=== PATIENT | female | born 1980 | race Caucasian/White ===

== ENCOUNTER 2020-02-05 07:34 | Emergency (ER) | payer OTHER ==
[~2020-02-05] VITALS: Ht 167.6 cm; Wt 75.0 kg
[2020-02-05 07:41] VITALS: Ht 167.6 cm; Wt 75.0 kg
[2020-02-05] MEDS ORDERED: XANAX0.5 MG PO (07:43)
[2020-02-05 08:06] LABS: BASOPHILS 0.2 % (0-2); CALC OSMOLALITY 275 mosm/kg (275-300); CALCIUM 8.4 mg/dL (8.5-10.1); CARBON DIOXIDE 18.3 mmol/L (21.0-32.0); CHLORIDE - SERUM 103 mmol/L (98-107); EOSINOPHILS 0.1 % (0-7); GLUCOSE 124 mg/dL (74-106); HEMOGLOBIN 13.4 g/dL (12-16); IMMATURE GRANULOCYTES 0.3 % (0-5); LYMPHOCYTES 11.3 % (15-50); MCH 31.2 pg (26.0-34.0); MCHC 33.5 g/dL (31.0-37.0); MCV 93.2 fL (80.0-100.0); MEAN PLATELET VOLUME 9.8 fL (7.4-10.4); MONOCYTES 5.4 % (2-11); NEUTROPHILS 82.7 % (40-80); PLATELET COUNT 378 10x3/uL (130-400); POTASSIUM - SERUM 3.3 mmol/L (3.5-5.1); RBC 4.29 10x6/uL (4.00-5.40); RDW 14.3 % (11.5-14.5); SODIUM 138 mmol/L (136-145); UREA NITROGEN 9 mg/dL (7-18); WBC 17.1 10x3/uL (4.8-10.8); eGFR NON AFRICAN AMERICAN 66 mL/min (90-120)
[2020-02-05 08:15] LABS: ALBUMIN 3.9 g/dL (3.4-5.0); ALKALINE PHOSPHATASE 57 U/L (30-120); ALT (SGPT) 23 U/L (10-68); AMYLASE - SERUM 76 U/L (25-115); BILIRUBIN - TOTAL 0.32 mg/dL (0.2-1.3); LIPASE 43 U/L (73-393); PROTEIN - SERUM 7.1 g/dL (6.4-8.2); TROPONIN-I < 0.017 ng/mL (0.000-0.060)
[2020-02-05 08:40] LABS: BILIRUBIN NEGATIVE (NEGATIVE); GLUCOSE NEGATIVE (NEGATIVE); HCG URINE NEGATIVE (NEGATIVE); KETONE MODERATE mg/dL (NEGATIVE); NITRITE NEGATIVE (NEGATIVE); UROBILINOGEN NORMAL (NORMAL)
[2020-02-05] MEDS ORDERED: ZOFRAN ODT4 MG/UDTAB PO (09:52)
[2020-02-05] MEDS ORDERED: FLORASTOR250 MG PO (09:53)
[2020-02-05] MEDS ORDERED: KEFLEX500 MG PO (09:53)
[2020-02-05] MEDS ORDERED: CLEOCIN HCL300 MG PO (09:53)
[2020-02-05 11:24] VITALS: BP 109/79
== END 2020-02-05 11:27 | disposition home or self-care (01) ==
LOC: D.ER 07:34
PROVIDERS: Family Medicine
DX: R10.9 Unspecified abdominal pain (principal); S91.311A Laceration without foreign body, right foot, initial encounter; L55.1 Sunburn of second degree; R11.10 Vomiting, unspecified